=== PATIENT | male | born 2000 | race Caucasian/White ===

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

== ENCOUNTER 2020-02-05 02:42 | Emergency (ER) | payer OTHER ==
[~2020-02-05] VITALS: Ht 180.3 cm; Wt 89.5 kg
[~2020-02-05 02:42] MED LIST: SELE25SHA TOP
[2020-02-05] MEDS ORDERED: AMPICILLIN SOD/SULBACTAM SOD 3 GM in D5W MINI-BAG PLUS 100 ML IV ONE (06:45)
[2020-02-05] MEDS ORDERED: BENZONATATE 100 MG CAP PO ONE (06:45)
[2020-02-05] MEDS ORDERED: dexameTHASONE 20MG/5ML VIAL (J1100 PER 1MG) IV ONE (06:45)
[2020-02-05] MEDS ORDERED: NS 1,000 ML IV ONE (06:45)
[2020-02-05 07:09] LABS: BASO % 0.4 % (0.0-1.0); EOS # 0.1 10^3/uL (0.0-0.5); EOS % 0.8 % (0.0-3.0); HEMATOCRIT 44.3 % (42.0-52.0); HEMOGLOBIN 14.7 g/dl (13.5-17.5); LYMPH # 1.9 10^3/uL (1.5-5.0); LYMPH % 17.5 % (24.0-44.0); MEAN CORPUSCULAR HEMOGLOBIN 28.1 pg (27.0-33.0); MEAN CORPUSCULAR HGB CONC 33.2 g/dl (32.0-36.5); MEAN CORPUSCULAR VOLUME 84.7 fl (80.0-96.0); MONO % 8.8 % (0.0-5.0); NEUTROPHILS # 7.8 10^3/uL (1.5-8.5); PLATELET COUNT, AUTOMATED 304 10^3/uL (150-450); RED BLOOD COUNT 5.23 10^6/uL (4.30-6.10); WHITE BLOOD COUNT 10.8 10^3/uL (4.0-10.0)
[2020-02-05 07:27] LABS: BLOOD UREA NITROGEN 11 MG/DL (7-18); CARBON DIOXIDE LEVEL 28 MEQ/L (21-32); CHLORIDE LEVEL 106 MEQ/L (98-107); CREATININE FOR GFR 0.82 MG/DL (0.70-1.30); GLUCOSE, FASTING 91 MG/DL (70-100); POTASSIUM SERUM 4.5 MEQ/L (3.5-5.1); SODIUM LEVEL 139 MEQ/L (136-145)
--- NOTE | 2020-02-05 09:12 | REP ---
INDICATION: cough, sob. COMPARISON: 12/25/2019 TECHNIQUE: AP portable chest. FINDINGS: The lung maya are well inflated. There is no pleural effusion or lateral pleural thickening. No dense consolidation or parenchymal mass. Subtle patchy atelectasis or infiltrate peripherally in the left mid lung zone. Some peribronchial thickening suggesting bronchitis or reactive airway disease noted. The heart is not enlarged. There is no vascular redistribution or pulmonary edema. The aorta and airway are intact. Bony thorax unremarkable. No free air. IMPRESSION: 1. Some subtle patchy left midlung zone atelectasis or infiltrate and mild peribronchial thickening that might reflect reactive airway disease or bronchitis. 2. No effusion, dense consolidation, cardiomegaly or edema. <Electronically signed by Tam Morris > 02/05/20 0940
[2020-02-05 09:45] VITALS: BP 124/60
[2020-02-05] MEDS ORDERED: AUGM875T28 PO (10:18)
[2020-02-05] MEDS ORDERED: BENZ200C70 PO (10:18)
[2020-02-05] MEDS ORDERED: ZITHTAB PO (10:18)
[2020-02-05] MEDS ORDERED: VENTAER INH (10:18)
== END 2020-02-05 10:43 | disposition home or self-care (01) ==
LOC: M ED 02:42
DX: J03.90 Acute tonsillitis, unspecified (principal); J18.9 Pneumonia, unspecified organism
CPT/HCPCS: 71045; 80048; 85025; 86140; 87880; 96365; 96366; 96375; 99285; J1100; U0002

== ENCOUNTER 2020-02-12 04:49 | Emergency (ER) | payer OTHER ==
[~2020-02-12] VITALS: Ht 180.3 cm; Wt 86.9 kg
[~2020-02-12 04:49] MED LIST changes: +AUGM875T28 PO; +BENZ200C70 PO; +VENTAER INH; +ZITHTAB PO
[2020-02-12 07:23] VITALS: O2SAT 98
[2020-02-12 07:38] LABS: BASO # 0.1 10^3/uL (0.0-0.2); BASO % 0.8 % (0.0-1.0); EOS # 0.3 10^3/uL (0.0-0.5); EOS % 3.8 % (0.0-3.0); HEMATOCRIT 46.1 % (42.0-52.0); LYMPH # 2.9 10^3/uL (1.5-5.0); LYMPH % 41.3 % (24.0-44.0); MEAN CORPUSCULAR HEMOGLOBIN 27.3 pg (27.0-33.0); MEAN CORPUSCULAR HGB CONC 32.5 g/dl (32.0-36.5); MONO # 0.7 10^3/uL (0.0-0.8); MONO % 9.1 % (0.0-5.0); NEUTROPHILS # 3.2 10^3/uL (1.5-8.5); NEUTROPHILS % 44.6 % (36.0-66.0); PLATELET COUNT, AUTOMATED 423 10^3/uL (150-450); RED BLOOD COUNT 5.49 10^6/uL (4.30-6.10); WHITE BLOOD COUNT 7.1 10^3/uL (4.0-10.0)
[2020-02-12 08:03] LABS: ALBUMIN 3.8 GM/DL (3.2-5.2); ALT/SGPT 35 U/L (12-78); BILIRUBIN,DIRECT < 0.1 MG/DL (0.0-0.2); BILIRUBIN,TOTAL 0.4 MG/DL (0.2-1.0); BLOOD UREA NITROGEN 12 MG/DL (7-18); CALCIUM LEVEL 9.5 MG/DL (8.5-10.1); CARBON DIOXIDE LEVEL 31 MEQ/L (21-32); CHLORIDE LEVEL 103 MEQ/L (98-107); CK-MB VALUE MASS < 1.0 NG/ML (<3.6); CPK CREATINE PHOSPHOKINASE 73 U/L (39-308); GLUCOSE, FASTING 88 MG/DL (70-100); LIPASE 155 U/L (73-393); MB/CK RELATIVE INDEX 1.37 (< OR =4); POTASSIUM SERUM 4.8 MEQ/L (3.5-5.1); SODIUM LEVEL 138 MEQ/L (136-145); TOTAL PROTEIN 7.6 GM/DL (6.4-8.2); TROPONIN I < 0.02 NG/ML (< 0.10)
[2020-02-12 08:27] LABS: ERYTHROCYTE SEDIMENTATION RATE 9 mm/hr (0-15)
--- NOTE | 2020-02-12 10:22 | REP ---
INDICATION: Abdominal Pain COMPARISON: 02/05/2020. TECHNIQUE: PA/Lateral FINDINGS: Lungs: There is again some subtle hazy left perihilar opacity which may represent some mild infiltrate/pneumonitis. Heart: Normal in size. Mediastinum: Mediastinal silhouette unremarkable. Pleural angles: Unremarkable.. Bones and soft tissues: Unremarkable. IMPRESSION: Subtle left perihilar hazy opacity again noted suggesting very mild left perihilar infiltrate/pneumonitis. <Electronically signed by Bhaskar Tran > 02/12/20 1016
--- NOTE | 2020-02-12 10:25 | ECGEPIP ---
[facility] - ED Test Date: 2020-02-12 Pat Name: BOZENA ARGUETA Department: Room: - Gender: Male Supply Chain Business Analyst: shola : 2000 Requested By: TIFFANY Simon PA-C Order Number: [id number] Reading MD: Braden Ames Measurements Intervals [place] Rate: 87 P: 64 MA: 142 QRS: -20 QRSD: 102 T: 55 QT: 350 QTc: 422 Interpretive Statements SINUS RHYTHM NSTTW ABNORMALITY(S) SIMILAR TO 12/25/19 Electronically Signed on 02-12-2020 10:25:27 EST by Braden Ames
[2020-02-12 10:49] LABS: CK-MB VALUE MASS < 1.0 NG/ML (<3.6); CPK CREATINE PHOSPHOKINASE 55 U/L (39-308); MB/CK RELATIVE INDEX 1.82 (< OR =4); TROPONIN I < 0.02 NG/ML (< 0.10)
[2020-02-12 11:44] VITALS: BP 153/65
== END 2020-02-12 11:45 | disposition home or self-care (01) ==
LOC: M ED 04:49
DX: J18.9 Pneumonia, unspecified organism (principal); J06.9 Acute upper respiratory infection, unspecified; R07.89 Other chest pain; J03.90 Acute tonsillitis, unspecified; Z79.899 Other long term (current) drug therapy

== ENCOUNTER 2020-05-16 19:13 | Emergency (ER) | payer OTHER ==
[~2020-05-16] VITALS: Ht 182.9 cm; Wt 90.1 kg
--- OUTSIDE RECORDS SUMMARY | 2020-05-16 19:18 | CCD ---
Author Author [facility] Organization [facility] Address Unknown Phone Unavailable Care Team Providers Care Boarding Specialist Name Role Phone EVON NEGRO MD Unavailable Unavailable EVON NEGRO MD Unavailable Unavailable EVON NEGRO MD Unavailable Unavailable EVON NEGRO MD Unavailable Unavailable EVON NEGRO MD Unavailable Unavailable EVON NEGRO MD Unavailable Unavailable EVON NEGRO MD Unavailable Unavailable EVON NEGRO MD Unavailable Unavailable EVON NEGRO MD Unavailable Unavailable EVON NEGRO MD Unavailable Unavailable EVON NEGRO MD Unavailable Unavailable EVON NEGRO MD Unavailable Unavailable EVON NEGRO MD Unavailable Unavailable EVON NEGRO MD Unavailable Unavailable EVON NEGRO MD Unavailable Unavailable EVON NEGRO MD Unavailable Unavailable EVON NEGRO MD Unavailable Unavailable EVON NEGRO MD Unavailable Unavailable EVON NEGRO MD Unavailable Unavailable EVON NEGRO MD Unavailable Unavailable EVON NEGRO MD Unavailable Unavailable EVON NEGRO MD Unavailable Unavailable EVON NEGRO MD Unavailable Unavailable EVON NEGRO MD Unavailable Unavailable EVON NEGRO MD Unavailable Unavailable EVON NEGRO MD Unavailable Unavailable EVON NEGRO MD Unavailable Unavailable EVON NEGRO MD Unavailable Unavailable EVON NEGRO MD Unavailable Unavailable EVON NEGRO MD Unavailable Unavailable EVON NEGRO MD Unavailable Unavailable EROS, Omar PAMELA Unavailable Unavailable Ofe, Elizabeth Kwoke SOAP TENDER-C Unavailable Unavailabl e Ofe, Elizabeth Kwoke SOAP TENDER-C Unavailable Unavailabl e Ofe, Elizabeth Kwoke SOAP TENDER-C Unavailable Unavailabl e Ofe, Reginah W Codie SOAP TENDER-C Unavailable Unavailabl e Ofe, Elizabeth W Codie SOAP TENDER-C Unavailable Unavailabl e Ofe, Elizabeth W Codie SOAP TENDER-C Unavailable Unavailabl e Ofe, Elizabeth W Codie SOAP TENDER-C Unavailable Unavailabl e Ofe, Elizabeth W Codie SOAP TENDER-C Unavailable Unavailabl e Ofe, Elizabeth W Codie SOAP TENDER-C Unavailable Unavailabl e Ofe, Elizabeth W Codie SOAP TENDER-C Unavailable Unavailabl e Ofe, Elizabeth W Codie SOAP TENDER-C Unavailable Unavailabl e Ofe, Elizabeth W Codie SOAP TENDER-C Unavailable Unavailabl e Ofe, Elizabeth W Codie SOAP TENDER-C Unavailable Unavailabl e Ofe, Elizabeth W Codie SOAP TENDER-C Unavailable Unavailabl e Ofe, Elizabeth W Codie SOAP TENDER-C Unavailable Unavailabl e Ofe, Elizabeth W Codie SOAP TENDER-C Unavailable Unavailabl e Ofe, Elizabeth W Codie SOAP TENDER-C Unavailable Unavailabl e Ofe, Jia W Codie SOAP TENDER-C Unavailable Unavailabl e Ofe, Elizabeth W Codie SOAP TENDER-C Unavailable Unavailabl e Ofe, Elizabeth W Codie SOAP TENDER-C Unavailable Unavailabl e Ofe, Jia W Codie SOAP TENDER-C Unavailable Unavailabl e Ofe, Regdiana W Codie SOAP TENDER-C Unavailable Unavailabl e Ofe, Regdiana W Codie SOAP TENDER-C Unavailable Unavailabl e Ofe, Regdiana W Codie SOAP TENDER-C Unavailable Unavailabl e Ofe, Regina W Codie SOAP TENDER-C Unavailable Unavailabl e Ofe, Regyasmany W Codie SOAP TENDER-C Unavailable Unavailabl e Ofe, Regdiana W Codie SOAP TENDER-C Unavailable Unavailabl e Ofe, Regyasmany W Codie SOAP TENDER-C Unavailable Unavailabl e Ofe, Regyasmany W Codie SOAP TENDER-C Unavailable Unavailabl e Ofe, Regdiana W Codie SOAP TENDER-C Unavailable Unavailabl e Ofe, Elizabeth Mackay SOAP TENDER-C Unavailable Unavailabl e Ofe, Elizabeth Mackay SOAP TENDER-C Unavailable Unavailabl e Re-disclosure Warning The records that you are about to access may contain information from federally-assisted alcohol or drug abuse programs. If such information is present, then the following federally mandated warning applies: This information has been disclosed to you from records protected by federal confidentiality rules (42 CFR part 2). The federal rules prohibit you from making any further disclosure of this information unless further disclosure is expressly permitted by the written consent of the person to whom it pertains or as otherwise permitted by 42 CFR part 2. A general authorization for the release of medical or other information is NOT sufficient for this purpose. The Federal rules restrict any use of the information to criminally investigate or prosecute any alcohol or drug abuse patient.The records that you are about to access may contain highly sensitive health information, the redisclosure of which is protected by Article 27-F of the [facility] Public Health law. If you continue you may have access to information: Regarding HIV / AIDS; Provided by facilities licensed or operated by the [facility] Office of Mental Health; or Provided by the [facility] Office for People With Developmental Disabilities. If such information is present, then the following [facility] mandated warning applies: This information has been disclosed to you from confidential records which are protected by state law. State law prohibits you from making any further disclosure of this information without the specific written consent of the person to whom it pertains, or as otherwise permitted by law. Any unauthorized further disclosure in violation of state law may result in a fine or retirement sentence or both. A general authorization for the release of medical or other information is NOT sufficient authorization for further disc losure. Allergies and Adverse Reactions Type Description Substance Reaction Status Data Source(s ) Drug allergy No Known Allergies No Known Allergies [facility] Encounters Encounter Providers Location Date Indications Data Source(s ) Outpatient Attender: PAMELA Markham: PAMELA Davenport 05/10/2020 06:53:00 AM EST - 05/10/2020 10:47:00 AM EST [facility] Patient discharged. Outpatient Attender: PAMELA Villarender: PAMELA NEGRO EMERGENCY ROOM-LAB REF 05/06/2020 12:19:00 PM EST - 05/06/2020 12:19:00 PM [facility] 05/03/2020 12:00:00 AM [place] [address] ([facility]) Outpatient Attender: Codie Thakur SOAP TENDER-C 03/06/2020 09:41:0 0 AM [facility] 03/06/2020 12:00:00 AM [place] [address] ([facility]) Insurance Providers Payer name Policy type / Coverage type Policy ID Covered alliance party ID Covered alliance party's relationship to pro Policy Pro Plan Information [facility] [id number] SP [id number] [facility] [id number] S [id number] [facility] [id number] S [id number] Problems, Conditions, and Diagnoses Code Display Name Description Problem Type Effective Dates Data Source(s) J35.1 [id number] Tonsillar hypertrophy Problem 03/06/2020 12: 00:00 AM [place] [address] ([facility]) Z01.818 Encounter for other preprocedural examin ation ENCOUNTER FOR OTHER PREPROCEDURAL EXAMINATION Diagnosis 05/06/2020 12:19:00 PM [facility] ospital R06.83 Snoring SNORING Diagnosis 03/06/2020 09:41:00 AM [facility] J03.91 Acute recurrent tonsillitis, unspecified ACUTE RECURRENT TONSILLITIS, UNSPECIFIED Diagnosis 03/06/2020 09:41:00 AM [facility] J35.1 Hypertrophy of tonsils HYPERTROPHY OF TONSILS Diagnosi s 03/06/2020 09:41:00 AM [facility] Results ID Date Data Source [id number] 05/13/2020 08:45:00 AM [facility] DATE OF PROCEDURE: 05/10/2020 OPERATION : Tonsillectomy. PREOPERATIVE DIAGNOSIS: Chronic tonsillitis. POSTOPERATIVE DIAGNOSIS: Same. SURGEON: Dr. Anais Negro. ANESTHESIA: General endotracheal. PROCEDURE: Under satisfactory endotracheal anesthesia, large debris-filled tonsils were removed using sharp dissection. Bleeding was extremely carefully controlled with pressure packing and electrocautery. The noes and nasopharynx were irrigated. The stomach was aspirated. The patient tolerated the procedure will. Blood loss was moderate. The patient was taken to the recovery room in excellent condition. There were no complications. Name Value Range Interpretation Code Description Data Bela rce(s) Supporting Document(s) ID Date Data Source [id number] 05/14/2020 04:05:00 PM EST [facility] Name Value Range Interpretation Code Description Data Bela rce(s) Supporting Document(s) Pathology Report [facility] . 01Material submitted: .PART A: tonsil - LEFT TONSIL. Modifiers: leftPART B: tonsil - RIGHT TONSIL. Modifiers: right. 01Clinical history: .CHRONIC TONSILLITIS, BILATERAL TONSILLECTOMY. 02Diagnosi s:A)PALATINE TONSIL, LEFT SIDE (TONSILLECTOMY):CHRONIC TONSILLITIS AND LYMPHOID HYPERPLASIA. B)PALATINE TONSIL, RIGHT SIDE (TONSILLECTOMY):CHRONIC TONSILLITIS AND LYMPHOID HYPERPLASIA.[facility] 05/14/2020 1059 Local. 02Electronically signed: .Mayi Vázquez MD, Pathologist. 01Gross description: .Specimen A received in formalin labeled "left tonsil" are two partlyfragmented pieces of rubbery cau terized butler red tissue with deep internalcrypts. The pieces measure 2.5 x 1.7 x 1.0 cm and 3.5 x 2.2 x 2.0 cm.Pouncer sections are submitted in one cassette. Specimen B received in formalin labeled "right tonsil" is a 2.8 x 2.2 x2.0 cm ovoid lobulated rubbery pink butler tonsil with pitted partly crypticcut surfaces. Pouncer sections are submitted in one cassette. TRINA/KARI [address] [place], [place] [address]Pathologist provided ICD-10:J35.1. 02CPT .[id number], [id number] ID Date Data Source [id number] 05/06/2020 02:00:00 PM EST [facility] Name Value Range Interpretation Code Description Data Bela rce(s) Supporting Document(s) SARS coronavirus 2 RNA Not Detected [facility] This lab was ordered by [facility] a nd reported by [facility]. ID Date Data Source [id number] 05/07/2020 02:05:00 PM EST [facility] Name Value Range Interpretation Code Description Data Bela rce(s) Supporting Document(s) SARS COV2 [facility] Not Detected Not Detected [facility] This nucleic acid amplification test was developed and itsperformance characteristics determined by [facility]. Nucleic acid amplification tests include RT-PCR and TMA. This test has not been FDA cleared orapproved. This test has been authorized by FDA under anEmergency Use Authorization (EUA). This test is onlyauthorized for the duration of time the declaration thatcircumstances exist justifying the authorization of theemergency use of in vitro diagnostic tests for detection [id number]-7 virus and/or diagnosis of COVID-19 infectionunder section 564(b)(1) of the Act, 21 U.S.C. 360bbb-3(b)(1), unless the authorization is terminated or revokedsooner.When diagnostic testing is negative, the possibility of afalse negative result should be considered in the contextof a patient's recent exposures and the presence ofclinical signs and symptoms consistent with COVID-19. Anindividual without symptoms of COVID-19 and who is notshedding SARS-CoV-2 virus would expect to have a negative(not detect ed) result in this assay. ID Date Data Source [id number] 05/07/2020 02:05:00 PM EST [facility] Name Value Range Interpretation Code Description Data Bela rce(s) Supporting Document(s) SARS-CoV-2, [place]LEY Not Detected Not Detected [facility] This nucleic acid amplification test was developed and its performancecharacteristics determined by [facility]. Nucleic acidamplification tests include RT-PCR and TMA. This test has not beenFDA cleared or approved. This test has been authorized by FDA underan Emergency Use Authorization (EUA). This test is only authorizedfor the duration of time the declaration that circumstances existjustifying the authorization of the emergency use of in vitrodiagnostic tests for detection of SARS-CoV-2 virus and/or diagnosisof COVID-19 infection under section 564(b)(1) of the Act, 21 U.S.C.360bbb-3(b) (1), unless the authorization is terminated or revokedsooner.When diagnostic testing is negative, the possibility of a falsenegative result should be considered in the context of a patient'srecent exposures and the presence of clinical signs and symptomsconsistent with COVID- 19. An individual without symptoms of COVID-19and who is not shedding SARS-CoV-2 virus would expect to have anegative (not detected) result in this assay. ID Date Data Source [id number] 05/07/2020 02:05:00 PM EST [facility] Name Value Range Interpretation Code Description Data Bela rce(s) Supporting Document(s) Inpatient [facility] Received Procedure Vital Signs ID Date Data Source UNK Name Value Range Interpretation Code Description Data Source(s) Oxygen saturation in Arterial blood by Pulse oximetry 98 % 98 % eCW1 ([facility]) Respiratory rate 16 /min 16 /min eCW1 ([facility]) Heart rate 78 /min 78 /min eCW1 ([facility]) Body temperature 98 [degF] 98 [degF] eCW1 ([facility]) Body weight 200 [lb_av] 200 [lb_av] eCW1 ([facility])
--- OUTSIDE RECORDS SUMMARY | 2020-05-16 19:18 | CCD ---
Author Author [facility] Organization [facility] Address Unknown Phone Unavailable Care Team Providers Care Dovetail Machine Operator Name Role Phone Codie Thakur Unavailable Unavailable PROBLEMS Type Condition ICD9-CM Code [id number] Code Onset Dates Condition S tatus SNOMED Code Notes Problem Tonsillar hypertrophy J35.1 Active [id number] ALLERGIES No Known Allergies ENCOUNTERS from 2000 to 2020-03-08 Encounter Location Date Provider [facility] [address] [place] [address] 2019 Codie Thakur Tonsillar hypertrophy J35.1 ; Snoring R0 6.83 and Recurrent tonsillitis J03.91 IMMUNIZATIONS No Information SOCIAL HISTORY Sex Assigned At : Social History Observation Description Sex Assigned At Unknown REASON FOR REFERRAL No Information VITAL SIGNS Weight 200 lbs Feb, Temperature 98 degrees Fahrenheit Feb, Heart Rate 78 /min Feb, Respiratory Rate 16 /min Feb, Oximetry 98 % Feb, Blood pressure systolic 124 mmHg Feb, Blood pressure diastolic 78 mmHg Feb, MEDICATIONS No Known Medications PROCEDURES No Information RESULTS No Results REASON FOR VISIT Tonsillitis MEDICAL (GENERAL) HISTORY Type Description Date Medical History pneumonia-01/2020 Surgical History adenoids removed Surgical History wisdom teeth extracted Goals Section No Information Health Concerns No Information MEDICAL EQUIPMENT No Information MENTAL STATUS No Information FUNCTIONAL STATUS No Information ASSESSMENTS Encounter Date Diagnosis Assessment Notes Treatment Notes Treatm ent Clinical Notes Feb, Tonsillar hypertrophy (ICD-10 - J35.1) Feb, Snoring (ICD-10 - R06.83) Feb, Recurrent tonsillitis (ICD-10 - J03.91) Feb, Other Advised Tonsille ctomy with Dr. Negro for tonsillar hypertrophy and recurrent pharyngitis. Pt v/u and agreeable. I have reviewed the elective surgery safety guide with the patient and provided them with a copy. All questions were answered and the patient agrees to comply. PLAN OF TREATMENT Next Appt Details prn Reason: Insurance Providers Payer Name Payer Address Payer Phone Insured Name Patient Relati onship to Insured Coverage Start Date Coverage End Date [facility] [address] [facility] [address] [facility] [id number] Abdi Woods self
--- OUTSIDE RECORDS SUMMARY | 2020-05-16 19:18 | CCD ---
Author Author [facility] Organization [facility] Address Unknown Phone Unavailable Care Team Providers Care Welfare Investigator Name Role Phone Cory Negro Unavailable PROBLEMS Type Condition ICD9-CM Code [id number] Code Onset Dates Condition S tatus W/U Status Risk SNOMED Code Notes Problem Tonsillar hypertrophy J35.1 Active confirmed [id number] ALLERGIES No Known Allergies ENCOUNTERS from 2000 to 2020-05-03 Encounter Location Date Provider Diagnosis [address] [address] Apr, Cory Negro Encounter for pre-operative examination Z01.818 IMMUNIZATIONS No Information SOCIAL HISTORY Sex Assigned At : Social History Observation Description Sex Assigned At Unknown REASON FOR REFERRAL No Information VITAL SIGNS No information MEDICATIONS No Information PROCEDURES No Information RESULTS No Results REASON FOR VISIT PRE-OP COVID-19 TEST MEDICAL (GENERAL) HISTORY Type Description Date Medical History pneumonia-01/2020 Surgical History adenoids removed Surgical History wisdom teeth extracted Goals Section No Information Health Concerns No Information MEDICAL EQUIPMENT No Information MENTAL STATUS No Information FUNCTIONAL STATUS No Information ASSESSMENTS Encounter Date Diagnosis Assessment Notes Treatment Notes Treatm ent Clinical Notes Apr, Encounter for pre-operative examination (ICD-10 - Z01.818) PLAN OF TREATMENT Treatment Notes Test Name Order Date COVID19 2020-05-03 Next Appt Details Provider Name:Codie Thakur, 2020-05-06 0 2:00:00 PM, [address] [place], [place], [id number], Insurance Providers Payer Name Payer Address Payer Phone Insured Name Patient Relati onship to Insured Coverage Start Date Coverage End Date [facility] [employer] [email or web address] [address] [place] [id number] Abdi Woods self
--- OUTSIDE RECORDS SUMMARY | 2020-05-16 19:18 | CCD | Continuity of Care Document ---
Author Author [facility] Address [address] [place] [address] Phone Care Team Providers Care Paint Stockman Name Role Phone PCP Unavailable Allergies, Adverse Reactions, Alerts No known allergies. Medications No known medications. Problems No problem information available. Procedures No procedure information available. Relevant Diagnostic Tests and/or Laboratory Data Laboratory Results Test Date/Time Result Interpretation Reference Range Result Co mment Performing Site BIOPSY IV May 10, 2020 3:11am SENT TO [facility], [address] [place] [address] SARS-CoV-2 (PCR) May 06, 2020 9:00am Not Detected No t Detected This nucleic acid amplification test was developed and itsperformance characteristics determined by [facility]. Nucleic acid amplification tests include RT- PCR and TMA. This test has not been FDA cleared orapproved. This test has been authorized by FDA under anEmergency Use Authorization (EUA). This test is onlyauthorized for the duration of time the declaration thatcircumstances exist justifying the authorization of theemergency use of in vitro diagnostic tests for detection qhHWJF-[id number]-3 virus and/or diagnosis of COVID-19 infectionunder section [...] virus would expect to have a negative(not detected) result in this assay. [facility] Health Concerns No known health concerns documented Encounters Encounter Location(s) Arrival/Admit Date Discharge/Depart Date Provider(s) Departed Surgical Day Care [facility] May 10 1:53am May 10, 2020 5:47am PAMELA COONEY @ Registered Referral [facility] May 06, 2020 7:19am PAMELA COONEY @ Registered Physician/Provider Office Visit [facility] March 06, 2020 4:41am ANDRÉS BUCKLEY Assessments No Assessments Information Available Functional Status No Functional Status information available Goals No Goals Information Available Immunizations No Immunization Information Available Mental Status No Mental Status Information Available Medical Equipment No Medical Equipment Information available Insurance Providers Guarantor BOZENA ARGUETA JR Address [address] [place] [address] Contact Info. Home Phone: Payer Policy Id Coverage Id Subscriber's Name Subscriber Id Effect kaela Date Expiration Date [facility] [id number] BOZENA ARGUETA JR Social History Assigned Sex Male Vital Signs No vital signs result information available.
--- OUTSIDE RECORDS SUMMARY | 2020-05-16 20:08 | CCD ---
Author Author [facility] Organization [facility] Address Unknown Phone Unavailable Care Team Providers Care Die Setter Name Role Phone EVON NEGRO MD Unavailable [...] Omar PAMELA Unavailable Unavailable Ofe, Elizabeth Kwoke CAR SALES CONSULTANT-C Unavailable Unavailabl e Ofe, Elizabeth Kwoke CAR SALES CONSULTANT-C Unavailable Unavailabl e Ofe, Elizabeth Kwoke CAR SALES CONSULTANT-C Unavailable Unavailabl e Ofe, Reginah W Codie CAR SALES CONSULTANT-C Unavailable Unavailabl e Ofe, Elizabeth W Codie CAR SALES CONSULTANT-C Unavailable Unavailabl e Ofe, Elizabeth W Codie CAR SALES CONSULTANT-C Unavailable Unavailabl e Ofe, Elizabeth W Codie CAR SALES CONSULTANT-C Unavailable Unavailabl e Ofe, Elizabeth W Codie CAR SALES CONSULTANT-C Unavailable Unavailabl e Ofe, Elizabeth W Codie CAR SALES CONSULTANT-C Unavailable Unavailabl e Ofe, Elizabeth W Codie CAR SALES CONSULTANT-C Unavailable Unavailabl e Ofe, Elizabeth W Codie CAR SALES CONSULTANT-C Unavailable Unavailabl e Ofe, Elizabeth W Codie CAR SALES CONSULTANT-C Unavailable Unavailabl e Ofe, Elizabeth W Codie CAR SALES CONSULTANT-C Unavailable Unavailabl e Ofe, Elizabeth W Codie CAR SALES CONSULTANT-C Unavailable Unavailabl e Ofe, Elizabeth W Codie CAR SALES CONSULTANT-C Unavailable Unavailabl e Ofe, Elizabeth W Codie CAR SALES CONSULTANT-C Unavailable Unavailabl e Ofe, Elizaebth W Codie CAR SALES CONSULTANT-C Unavailable Unavailabl e Ofe, Jia W Codie CAR SALES CONSULTANT-C Unavailable Unavailabl e Ofe, Elizabeth W Codie CAR SALES CONSULTANT-C Unavailable Unavailabl e Ofe, Elizabeth W Codie CAR SALES CONSULTANT-C Unavailable Unavailabl e Ofe, Jia W Codie CAR SALES CONSULTANT-C Unavailable Unavailabl e Ofe, Regdiana W Codie CAR SALES CONSULTANT-C Unavailable Unavailabl e Ofe, Regdiana W Codie CAR SALES CONSULTANT-C Unavailable Unavailabl e Ofe, Regdiana W Codie CAR SALES CONSULTANT-C Unavailable Unavailabl e Ofe, Regina W Codie CAR SALES CONSULTANT-C Unavailable Unavailabl e Ofe, Regyasmany W Codie CAR SALES CONSULTANT-C Unavailable Unavailabl e Ofe, Regdiana W Codie CAR SALES CONSULTANT-C Unavailable Unavailabl e Ofe, Regyasmany W Codie CAR SALES CONSULTANT-C Unavailable Unavailabl e Ofe, Regyasmany W Codie CAR SALES CONSULTANT-C Unavailable Unavailabl e Ofe, Regdaina W Codie CAR SALES CONSULTANT-C Unavailable Unavailabl e Ofe, Elizabeth Mackay CAR SALES CONSULTANT-C Unavailable Unavailabl e Ofe, Elizabeth Mackay CAR SALES CONSULTANT-C Unavailable Unavailabl e Re-disclosure Warning The records [...] is protected by Article 27-F of the [facility] Public Health law. If you continue you may have access to information: Regarding HIV / AIDS; Provided by facilities licensed or operated by the [facility] Office of Mental Health; or Provided by the [facility] Office for People With Developmental Disabilities. If such information is present, then the following [facility] mandated warning applies: This information has been [...] law may result in a fine or residential sentence or both. A general authorization for [...] AM EST - 05/10/2020 10:47:00 AM EST [facility] Patient discharged. Outpatient Attender: PAMELA [place]: PAMELA NEGRO EMERGENCY ROOM-LAB REF 05/06/2020 12:19:00 PM EST - 05/06/2020 12:19:[address] [facility] 05/03/2020 12:00:00 AM [place] [id number] [place] Outpatient Attender: Codie Thakur CAR SALES CONSULTANT-C 03/06/2020 09:41:[address] [facility] 03/06/2020 12:00:00 AM [place] [id number] ([facility]) Insurance Providers Payer name Policy type / Coverage type Policy ID Covered libertarian ID Covered libertarian's relationship to pro Policy Pro Plan Information [facility] [employer] [id number] SP [id number] [facility] [id number] S [id number] [facility] [id number] S [id number] Problems, Conditions, and Diagnoses Code Display Name Description Problem Type Effective Dates Data Source(s) J35.1 [id number] Tonsillar hypertrophy Problem 03/06/2020 12: 00:00 AM [place] [id number] ([facility]) Z01.818 Encounter for other preprocedural examin ation ENCOUNTER FOR OTHER PREPROCEDURAL EXAMINATION Diagnosis 05/06/2020 12:19:00 PM [facility] ospital R06.83 Snoring SNORING Diagnosis 03/06/2020 09:41:00 AM [facility] J03.91 Acute recurrent tonsillitis, unspecified ACUTE RECURRENT TONSILLITIS, UNSPECIFIED Diagnosis 03/06/2020 09:41:00 AM [facility] J35.1 Hypertrophy of tonsils HYPERTROPHY OF TONSILS Diagnosi s 03/06/2020 09:41:00 AM [facility] Results ID Date Data Source [id number] 05/13/2020 08:45:00 AM [facility] DATE OF PROCEDURE: 05/10/2020 OPERATION : [...] rce(s) Supporting Document(s) ID Date Data Source [id number] 05/14/2020 04:05:00 PM EST [facility] Name Value Range Interpretation Code Description Data Bela rce(s) Supporting Document(s) Pathology Report [facility] . 01Material submitted: .PART A: tonsil - LEFT TONSIL. Modifiers: leftPART B: tonsil - RIGHT TONSIL. Modifiers: right. 01Clinical history: .CHRONIC TONSILLITIS, BILATERAL TONSILLECTOMY. 02Diagnosi s:A)PALATINE TONSIL, LEFT SIDE (TONSILLECTOMY):CHRONIC TONSILLITIS AND LYMPHOID HYPERPLASIA. B)PALATINE TONSIL, RIGHT SIDE (TONSILLECTOMY):CHRONIC TONSILLITIS AND LYMPHOID HYPERPLASIA.FORMERLY [facility], [facility] 05/14/2020 1059 Local. 02Electronically signed: .Mayi Vázquez MD, Pathologist. 01Gross description: .Specimen A received in formalin labeled "left tonsil" are two partlyfragmented pieces of rubbery cau terized butler red tissue with deep internalcrypts. The pieces measure 2.5 x 1.7 x 1.0 cm and 3.5 x 2.2 x 2.0 cm.C4 Planner sections are submitted in one cassette. Specimen B received in formalin labeled "right tonsil" is a 2.8 x 2.2 x2.0 cm ovoid lobulated rubbery pink butler tonsil with pitted partly crypticcut surfaces. C4 Planner sections are submitted in one cassette. TRINA/KARI [address] [place], [place] [address]Pathologist provided ICD-10:J35.1. 02CPT .[id number], [id number] ID Date Data Source [id number] 05/06/2020 02:00:00 PM EST [facility] Name Value Range Interpretation Code Description Data Bela rce(s) Supporting Document(s) SARS coronavirus 2 RNA Not Detected [facility] [place] This lab was ordered by [facility] a nd reported by [facility]. ID Date Data Source [id number] 05/07/2020 02:05:00 PM EST [facility] [...] of in vitro diagnostic tests for detection wdHPTV-StX-1 virus and/or diagnosis of COVID-19 infectionunder section [...] in this assay. ID Date Data Source [id number] 05/07/2020 02:05:00 PM EST [facility] Name Value Range Interpretation Code Description Data Bela rce(s) Supporting Document(s) SARS-CoV-2, BRADLEY Not Detected Not Detected [facility] This nucleic acid amplification test was developed and its performancecharacteristics determined by [facility]. Nucleic acidamplification tests include RT-PCR and [...] in this assay. ID Date Data Source [id number] 05/07/2020 02:05:00 PM EST [facility] Name Value Range Interpretation Code Description Data Bela rce(s) Supporting Document(s) Inpatient [facility] Received Procedure Vital Signs ID Date Data Source UNK Name Value Range Interpretation Code Description Data Source(s) Oxygen saturation in Arterial blood by Pulse oximetry 98 % 98 % eCW1 ([facility]) Respiratory rate 16 /min 16 /min eCW1 ([facility]) Heart rate 78 /min 78 /min eCW1 ([facility]) Body temperature 98 [degF] 98 [degF] eCW1 ([facility]) Body weight 200 [lb_av] 200 [lb_av] eCW1 ([facility])
[2020-05-16] MEDS ORDERED: PENI500T PO (20:35)
[2020-05-16] MEDS ORDERED: PENICILLIN V POTASSIUM 500 MG TAB PO ONE (20:45)
[2020-05-16] MEDS ORDERED: ACETAMINOPHEN SUSP DYE FREE 160 MG/5 ML UDC PO ONE (20:45)
[2020-05-16 21:01] VITALS: BP 174/75
== END 2020-05-16 21:12 | disposition home or self-care (01) ==
LOC: M ED 19:13
DX: J02.9 Acute pharyngitis, unspecified (principal)

== ENCOUNTER 2020-08-05 04:20 | Emergency (ER) | payer OTHER ==
[~2020-08-05] VITALS: Ht 180.3 cm; Wt 96.0 kg
[~2020-08-05 04:20] MED LIST changes: +PENI500T PO
[2020-08-05] MEDS ORDERED: predniSONE 20 MG TAB PO ONE (06:40)
--- NOTE | 2020-08-05 07:18 | REPVR ---
PROCEDURE INFORMATION: Exam: XR Chest Exam date and time: 08/05/2020 6:55 AM Age: 20 years old Clinical indication: Wheezing TECHNIQUE: Imaging protocol: XR of the chest. Views: 2 views. COMPARISON: [facility] PORTABLE CHEST X-RAY 02/05/2020 8:16 AM FINDINGS: Lungs: Unremarkable. No consolidation. Pleural spaces: Unremarkable. No pleural effusion. No pneumothorax. Heart/Mediastinum: Unremarkable. No cardiomegaly. Bones/joints: Unremarkable. IMPRESSION: No acute findings. Electronically signed by: Jesse Rodriguez On 08/05/2020 07:18:29 AM
[2020-08-05] MEDS ORDERED: PRED20TA PO (07:25)
[2020-08-05] MEDS ORDERED: VENTAER INH (07:25)
[2020-08-05 07:37] VITALS: BP 137/71
== END 2020-08-05 07:38 | disposition home or self-care (01) ==
LOC: M ED 04:20
DX: J20.9 Acute bronchitis, unspecified (principal); J12.2 Parainfluenza virus pneumonia; J02.9 Acute pharyngitis, unspecified
CPT/HCPCS: 71046; 87798; 99284; J7512

== ENCOUNTER 2022-08-04 11:01 | Emergency (ER) | payer OTHER ==
[~2022-08-04] VITALS: Ht 180.3 cm; Wt 108.3 kg
[~2022-08-04 11:01] MED LIST changes: +PRED20TA PO
[2022-08-04] MEDS ORDERED: BACITRACIN OINTMENT 30GM TUBE TOP ONE (13:00)
[2022-08-04 13:21] VITALS: BP 140/77
== END 2022-08-04 13:26 | disposition home or self-care (01) ==
LOC: M ED 11:01
DX: T23.101A Burn of first degree of right hand, unspecified site, initial encounter (principal); T23.201A Burn of second degree of right hand, unspecified site, initial encounter; Y27.2XXA Contact with hot fluids, undetermined intent, initial encounter; Z79.52 Long term (current) use of systemic steroids; Y92.009 Unspecified place in unspecified non-institutional (private) residence as the place of occurrence of the external cause; Y93.9 Activity, unspecified; T31.0 Burns involving less than 10% of body surface